=== PATIENT | male | born 1975 | race Two or more races ===

== ENCOUNTER 2016-11-11 17:18 | Observation (INO) | payer SELFPAY ==
[2016-11-11 17:36] VITALS: TEMP 98.4; BMI 21.8
[2016-11-11] MEDS ORDERED: ONDANSETRON HCL 4 MG/2 ML VIAL IV ONE (18:38)
[2016-11-11] MEDS ORDERED: MORPHINE 4 MG/ML INJECTION IV ONE (18:38)
--- NOTE | 2016-11-11 18:55 | DIRPT ---
CLINICAL DATA: Chest pain, nausea, vomiting and diarrhea for 4 days. Initial encounter. EXAM: PORTABLE CHEST 1 VIEW COMPARISON: None. FINDINGS: The lungs are clear. Heart size is normal. No pneumothorax or pleural effusion. No focal bony abnormality. IMPRESSION: Negative chest. Electronically Signed By: Bal Bond M.D. On: 11/11/2016 18:53
[2016-11-11] MEDS ORDERED: Pharmacy Review for Metformin - IV Contrast Given SCH (19:00)
[2016-11-11 19:06] LABS: AUTOMATED BASOPHIL 1.7 % (0-2); AUTOMATED EOSINOPHIL 0.1 % (0-5); AUTOMATED LYMPH 20.2 % (17-44); AUTOMATED MONOCYTE 8.9 % (3-10); AUTOMATED NEUTROPHIL 69.1 % (45-76)
[2016-11-11 19:21] LABS: BLOOD UREA NITROGEN 3 MG/DL (9-20); CALCIUM 9.2 MG/DL (8.4-10.2); CALCULATED OSMOLALITY 270 MOs/Kg (270-290); CHLORIDE 95 mEq/L (98-107); GLUCOSE 105 MG/DL (70-99); SODIUM LEVEL 142 mEq/L (137-146); TOTAL PROTEIN 8.5 G/DL (6.3-8.2)
[2016-11-11 19:30] LABS: PARTIAL THROMB. TIME 26.7 SEC (22-35)
[2016-11-11] MEDS ORDERED: HYDROmorphone 1 MG INJECTION IV ONE (19:39)
[2016-11-11] MEDS ORDERED: NS 1,000 ML IV ONE ×2 (19:39→19:51)
--- NOTE | 2016-11-11 19:53 | EDPRACDOC ---
- General Information Chief Complaint: Nausea,Vomiting,Diarrhea Stated Complaint: SORETHROAT Time Seen by Provider: 11/11/16 18:17 Information Source: Patient, [employer] Home Medications: Home Medications Oxycodone HCl/Acetaminophen [Percocet 5-325 mg Tablet] 1 tab PO Q6H PRN #20 tab 11/13/15 Allergies/Adverse Reactions: Allergies Allergy/AdvReac Type Severity Reaction Status Date / Time No Known Allergies Allergy Verified 11/11/16 17:24 - History of Present Illness Onset: 4 days HPI: PT PRESENTS TODAY WITH INTRACTABLE HICCUPS, N/V AND SEVERE EPIGASTRIC PAIN X 3 DAYS. PT STATES THAT THIS HAS HAPPENED TO HIM 2 YEARS AGO, BUT WAS NEVER THIS BAD AND RESOLVED SPONTANEOUSLY. PT IN SEVERE DISTRESS AT THIS TIME. Symptoms Occured: Reports: Spontaneous Duration: Reports: Episodes of Vomiting Pain Quality: Reports: Burning Pain Severity: Severe Pain Location: Reports: Epigastric Associated Signs and Symptoms: Reports: Fever, Nausea, Vomiting, Anorexia ED Past Medical History - History Reviewed Yes Nurses notes reviewed and agree except as marked - Patient Medical History Psychological History: Denies: Depression - Social Medical History Smoking Status: Heavy tobacco smoker (5 or more cigarettes/day or daily pipe/ cigar) EDM Review of Systems - Review of Systems ROS Negative Except as Marked: Yes All systems reviewed and were negative except as marked ROS Unobtainable: Yes Hx Limited due to age/level of understanding of patient Constitutional: Fever Respiratory: No Symptoms Reported Cardiovascular: No Symptoms Reported Gastrointestinal: Nausea, Pain, Vomiting Neurological: No Symptoms Reported Musculoskeletal: No Symptoms Reported Integumentary: No Symptoms Reported - Physical Exam Constitutional: Alert, Distress, Other (PT CANNOT STOP HICCUPING) Oriented to: Time, Person, Place Last recorded Vital Signs: Last Vital Signs Temp 98.4 F 11/11/16 17:31 Pulse 72 11/11/16 19:49 Resp 20 11/11/16 19:49 BP 142/88 11/11/16 19:49 Pulse Ox 95 11/11/16 19:49 Oxygen Pulse Oxygen Saturation 95 O2 Device Room Air Oxygen Flow Rate Fraction of Inspired Oxygen ( FIO2) - HEENT Head: Normal Eye Exam: Normal Neck: Normal, Denies Pain, Midline - Respiratory/Cardiovascular Respiratory: Normal - CTA Cardiovascular: Normal - GI Auscultation: Decreased Palpation: Normal Tenderness: Severe, Epigastric - Musculoskeletal Back: Normal Extremities: Normal - Integumentary Skin: Flushed (FACIAL FLUSHING) Lymphatics: Normal - Neurologic Cerebellar: Unable to Test Mood Description: Appropriate - Re-evaluation Re-evaluation 1 Re-evaluation Time: 22:22 PT FEELING MUCH BETTER AFTER FLUIDS AND MEDICATIONS; AFTER MUCH, MUCH ENCOURAGEMENT, PT FINALLY CONFESSES TO DAILY DRINKING, BUT STATES HE'S NEVER DRANK THIS MUCH. STATES THAT HE IS INTERESTED IN GETTING HELP FOR ALCOHOL. CASE DISCUSSED WITH DR. HOANG AND WILL KEEP PT IN OBS FOR ALCOHOL INTOXICATION. - Results 11/11/16 18:55 11/11/16 18:55 WBC 7.8 xk/uL (3.8-10.8) 11/11/16 18:55 RBC 4.96 xM/uL (4.70-6.10) 11/11/16 18:55 Hgb 16.2 g/dL (14.0-18.0) 11/11/16 18:55 Hct 47.4 % (42-52) 11/11/16 18:55 MCV 96 fL (80-94) H 11/11/16 18:55 MCH 32.6 pg (27-32) H 11/11/16 18:55 MCHC 34.1 g/dl (33-36) 11/11/16 18:55 RDW 14.1 % (11.5-14.5) 11/11/16 18:55 Plt Count 259 xk/uL (130-400) 11/11/16 18:55 MPV 7.0 fL (7.4-10.4) L 11/11/16 18:55 Neut % (Auto) 69.1 % (45-76) 11/11/16 18:55 Lymph % (Auto) 20.2 % (17-44) 11/11/16 18:55 [place] % (Auto) 8.9 % (3-10) 11/11/16 18:55 Eos % (Auto) 0.1 % (0-5) 11/11/16 18:55 Baso % (Auto) 1.7 % (0-2) 11/11/16 18:55 Absolute Neuts (auto) 5.38 xk/uL (1.7-8.2) 11/11/16 18:55 Absolute Lymphs (auto) 1.56 xk/uL (0.65-4.75) 11/11/16 18:55 PT 10.3 SEC (9.2-11.2) 11/11/16 18:55 INR 1.0 11/11/16 18:55 APTT 26.7 SEC (22-35) 11/11/16 18:55 Sodium 142 mEq/L (137-146) 11/11/16 18:55 Potassium 3.7 mEq/L (3.5-5.1) 11/11/16 18:55 Chloride 95 mEq/L (98-107) L 11/11/16 18:55 Carbon Dioxide 27 mMOL/L (22-33) 11/11/16 18:55 Anion Gap 24 mEq/L (8-16) H 11/11/16 18:55 BUN 3 MG/DL (9-20) L 11/11/16 18:55 Creatinine 0.60 MG/DL (0.66-1.25) L 11/11/16 18:55 Estimated GFR (MDRD) > 60 mL/min (>=60) 11/11/16 18:55 Glucose 105 MG/DL (70-99) H 11/11/16 18:55 Calculated Osmolality 270 MOs/Kg (270-290) 11/11/16 18:55 Lactic Acid 4.4 mEq/L (0.7-2.1) H* 11/11/16 18:55 Calcium 9.2 MG/DL (8.4-10.2) 11/11/16 18:55 Total Bilirubin 0.7 MG/DL (0.2-1.3) 11/11/16 18:55 AST 43 IU/L (17-59) 11/11/16 18:55 ALT 45 IU/L (21-72) 11/11/16 18:55 Alkaline Phosphatase 81 IU/L (38-126) 11/11/16 18:55 Troponin I < 0.01 ng/mL (<.04) 11/11/16 18:55 Total Protein 8.5 G/DL (6.3-8.2) H 11/11/16 18:55 Albumin 4.9 G/DL (3.5-5.0) 11/11/16 18:55 Lab Results 11/11/16 11/11/1617 18:55 18:55 18:55 WBC 7.8 RBC 4.96 Hgb 16.2 Hct 47.4 MCV 96 H MCH 32.6 H MCHC 34.1 RDW 14.1 Plt Count 259 MPV 7.0 L Neut % (Auto) 69.1 Lymph % (Auto) 20.2 [place] % (Auto) 8.9 Eos % (Auto) 0.1 Baso % (Auto) 1.7 Absolute Neuts (auto) 5.38 Absolute Lymphs (auto) 1.56 PT 10.3 INR 1.0 APTT 26.7 Sodium Potassium Chloride Carbon Dioxide Anion Gap BUN Creatinine Estimated GFR (MDRD) Glucose Calculated Osmolality Lactic Acid 4.4 H* Calcium Total Bilirubin AST ALT Alkaline Phosphatase Troponin I Total Protein Albumin 11/11/16 18:55 WBC RBC Hgb Hct MCV MCH MCHC RDW Plt Count MPV Neut % (Auto) Lymph % (Auto) [place] % (Auto) Eos % (Auto) Baso % (Auto) Absolute Neuts (auto) Absolute Lymphs (auto) PT INR APTT Sodium 142 Potassium 3.7 Chloride 95 L Carbon Dioxide 27 Anion Gap 24 H BUN 3 L Creatinine 0.60 L Estimated GFR (MDRD) > 60 Glucose 105 H Calculated Osmolality 270 Lactic Acid Calcium 9.2 Total Bilirubin 0.7 AST 43 ALT 45 Alkaline Phosphatase 81 Troponin I < 0.01 Total Protein 8.5 H Albumin 4.9 - Departure Disposition: Admit IP To This Hospital Condition: Fair Final Diagnosis: Nausea and vomiting, Lactic acidosis Gastritis Qualifiers: Gastritis type: alcoholic Chronicity: acute Gastritis bleeding: presence of bleeding unspecified Qualified Code(s): K29.20 - Alcoholic gastritis without bleeding Alcohol intoxication Qualifiers: Complication of substance-induced condition: uncomplicated Qualified Code(s): F10.120 - Alcohol abuse with intoxication, uncomplicated Referrals: None,No Provider [Primary Care Provider] - One Week Prescriptions: No Action Oxycodone HCl/Acetaminophen [Percocet 5-325 mg Tablet] 1 tab PO Q6H PRN #20 tab PRN Reason: Pain Decision to Admit Time: 22:25 Decision to admit date: 11/11/16 Decision to admit: from ED
[2016-11-11] MEDS ORDERED: CHLORPROMAZINE 25 MG IM ONE (19:57)
--- NOTE | 2016-11-11 20:53 | DIRPT ---
CLINICAL DATA: Severe epigastric abdominal pain for 4 days. Nausea, vomiting, and diarrhea. Hiccups. EXAM: CT ABDOMEN AND PELVIS WITH CONTRAST TECHNIQUE: Multidetector CT imaging of the abdomen and pelvis was performed using the standard protocol following bolus administration of intravenous contrast. CONTRAST: 100 mL Isovue 370 COMPARISON: None. FINDINGS: Dependent changes in the lung bases. Small esophageal hiatal hernia. Fluid in the lower esophagus suggest reflux or dysmotility. Diffuse fatty infiltration of the liver. The gallbladder, spleen, pancreas, adrenal glands, kidneys, abdominal aorta, inferior vena cava, and retroperitoneal lymph nodes are unremarkable. Duplicated right renal artery. Stomach, small bowel, and colon are not abnormally distended. No free air or free fluid in the abdomen. Abdominal wall musculature appears intact. Pelvis: The appendix is normal. The bladder is somewhat distended without filling defect or wall thickening. Prostate gland is not enlarged. No free air or free fluid in the abdomen. No abnormal pelvic mass or lymphadenopathy. No destructive bone lesions. IMPRESSION: No acute process demonstrated in the abdomen or pelvis. No evidence of bowel obstruction or inflammation. Diffuse fatty infiltration of the liver. Small esophageal hiatal hernia with fluid in the lower esophagus suggesting reflux or dysmotility. Electronically Signed By: Bienvenido Alcantar M.D. On: 11/11/2016 20:50
[2016-11-11] MEDS ORDERED: GI COCKTAIL 30 ML DOSE PO ONE (20:57)
[2016-11-11] MEDS ORDERED: Famotidine 20 mg/50 ml RTU 20 MG/50 ML IVB IV ONE (20:57)
[2016-11-11 21:37] LABS: ALL NEG? NO
[2016-11-11 21:42] LABS: MDMA* NEG (NEGATIVE); METHAMPHETAMINES NEG (NEGATIVE)
[2016-11-11 21:43] LABS: OXYCODONE NEG (NEGATIVE)
[2016-11-11 21:53] LABS: LEUKOCYTES/URINE NEG (NEGATIVE); NITRITE/URINE NEG (NEGATIVE); URINE OCCULT BLOOD NEG (NEG/TRACE)
[2016-11-11] MEDS ORDERED: DICYCLOMINE 20 MG TAB PO PRN (22:25)
[2016-11-11] MEDS ORDERED: LORAZEPAM 1 MG TAB PO PRN (22:36)
[2016-11-11] MEDS ORDERED: CHLORDIAZEPOXIDE 25 MG CAP PO ONE (23:00)
[2016-11-11] MEDS ORDERED: CHLORDIAZEPOXIDE 25 MG CAP PO SCH (23:00)
[2016-11-11] MEDS ORDERED: LORAZEPAM 1 MG TAB PO SCH (23:00)
[2016-11-11] MEDS: NS 1,000 ML IV SCH (23:41)
[2016-11-12] MEDS: NS 1,000 ML IV SCH (01:37)
[2016-11-12] MEDS ORDERED: CHLORDIAZEPOXIDE 25 MG CAP PO SCH (06:00)
[2016-11-12] MEDS ORDERED: CHLORDIAZEPOXIDE 25 MG CAP ONE (07:51)
[2016-11-12 08:08] VITALS: BP 127/65; PULSE 84
--- NOTE | 2016-11-12 08:18 | EDTUNOTE ---
- SOAP Note Patient Problems: Active Problems Alcohol intoxication (Acute) F10.129 Gastritis (Acute) K29.70 Lactic acidosis (Acute) E87.2 Nausea and vomiting (Acute) R11.2 SOAP Note: S: pt calm, eating breakfast. has no complaints. O: VS nml A: Alcohol intoxication (Acute) F10.129 Gastritis (Acute) K29.70 Lactic acidosis (Acute) E87.2 Nausea and vomiting (Acute) R11.2 P: will continue to monitor pending disposition
--- NOTE | 2016-11-12 09:10 | TUDEPART ---
Disposition: Home Final Diagnosis: Nausea and vomiting, Lactic acidosis Gastritis Qualifiers: Gastritis type: alcoholic Chronicity: acute Gastritis bleeding: presence of bleeding unspecified Qualified Code(s): K29.20 - Alcoholic gastritis without bleeding Alcohol intoxication Qualifiers: Complication of substance-induced condition: uncomplicated Qualified Code(s): F10.120 - Alcohol abuse with intoxication, uncomplicated Condition: Fair Education/Counseling Given To: Patient Education/Counseling Given Regarding: Diagnosis, Treatment, Prognosis, Follow Up Care Course/Plan/Goals: Follow up with [facility] for alcohol withdrawal. Follow up with primary care for gastritis. Return to ED for any new or worsening symptoms. - Physical Exam Constitutional: Alert, Distress, Other (PT CANNOT STOP HICCUPING) Oriented to: Time, Person, Place Last recorded Vital Signs: Last Vital Signs Temp 98.4 F 11/12/16 08:07 Pulse 84 11/12/16 08:07 Resp 18 11/12/16 08:07 BP 127/65 11/12/16 08:07 Pulse Ox 96 11/12/16 08:07 Oxygen Pulse Oxygen Saturation 95 O2 Device Room Air Oxygen Flow Rate Fraction of Inspired Oxygen ( FIO2) - HEENT Head: Normal Eye Exam: Normal - Respiratory/Cardiovascular Respiratory: Normal - CTA Cardiovascular: Normal - GI Auscultation: Decreased Palpation: Normal Tenderness: Severe, Epigastric - Musculoskeletal Back: Normal Extremities: Normal - Integumentary Skin: Flushed (FACIAL FLUSHING) Lymphatics: Normal - Neurologic Cerebellar: Unable to Test Mood Description: Appropriate
--- NOTE | 2016-11-12 09:14 | TUDEPART ---
Condition: Fair Follow-up / Referrals: None,No Provider [Family Provider] - One Week Follow-up/Additional Instructions: Follow up with primary care for gastritis. Follow up with [facility] for alcohol withdrawal. Return to ED for any new or worsening symptoms. - Physical Exam Constitutional: Alert, Distress, Other (PT CANNOT STOP HICCUPING) Oriented to: Time, Person, Place Last recorded Vital Signs: Last Vital Signs Temp 98.4 F 11/12/16 08:07 Pulse 84 11/12/16 08:07 Resp 18 11/12/16 08:07 BP 127/65 11/12/16 08:07 Pulse Ox 96 11/12/16 08:07 Oxygen Pulse Oxygen Saturation 96 O2 Device Oxygen Flow Rate Fraction of Inspired Oxygen ( FIO2) - HEENT Head: Normal Eye Exam: Normal - Respiratory/Cardiovascular Respiratory: Normal - CTA Cardiovascular: Normal - GI Auscultation: Decreased Palpation: Normal Tenderness: Severe, Epigastric - Musculoskeletal Back: Normal Extremities: Normal - Integumentary Skin: Flushed (FACIAL FLUSHING) Lymphatics: Normal - Neurologic Cerebellar: Unable to Test Mood Description: Appropriate
[2016-11-12] MEDS ORDERED: VITAMINS,PRENATAL TABLET PO SCH (12:00)
[2016-11-13] MEDS ORDERED: CHLORDIAZEPOXIDE 25 MG CAP PO SCH
== END 2016-11-12 10:05 | disposition home or self-care (01) ==
LOC: ED 17:18 → TUOBSINP 11-12 07:57
PROVIDERS: ADMIT Family Medicine; ATTEND Family Medicine
DX: K29.20 Alcoholic gastritis without bleeding (principal); F10.129 Alcohol abuse with intoxication, unspecified; F10.120 Alcohol abuse with intoxication, uncomplicated; E87.2 Acidosis
CPT/HCPCS: 36415; 71010; 74177; 80053; 80307; 81001; 83605; 83690; 83735; 84100; 84484; 85025; 85610; 85730; 93005; 96361; 96365; 96372; 96375; 99285; A9698; G0378; J1170; J2270; J2405; J3230; J3490; S0028